=== PATIENT | female | born 1980 | race Caucasian/White ===

== ENCOUNTER 2016-12-29 23:19 | Emergency (ER) | payer SELFPAY ==
[~2016-12-29] VITALS: Ht 154.9 cm; Wt 75.1 kg
[~2016-12-29 23:19] MED LIST: ALPR-475 PO; AMLO10TA2 PO; OXYC-302 PO; PROM12.55 PO
[2016-12-30 00:12] VITALS: BP 165/93
== END 2016-12-30 00:14 | disposition home or self-care (01) ==
LOC: ED 23:59
DX: M26.622 Arthralgia of left temporomandibular joint (principal); Z90.710 Acquired absence of both cervix and uterus; Z88.1 Allergy status to other antibiotic agents; Z88.8 Allergy status to other drugs, medicaments and biological substances
CPT/HCPCS: 99283